=== PATIENT | male | born 1965 | race Caucasian/White ===

== ENCOUNTER 2017-08-26 08:15 | Day surgery (SDC) | payer OTHER ==
[2017-08-26] MEDS ORDERED: Ringers Lactate 1,000 ML IV ONE (09:03)
[2017-08-26] MEDS ORDERED: CLINDAMYCIN INJ 600 MG in NA CHLORIDE 0.9% 50 ML IV ONE (10:00)
[2017-08-26] MEDS ORDERED: PROPOFOL 200 MG/20 ML VIAL IV ONE (10:43)
[2017-08-26] MEDS ORDERED: FENTANYL CITR 100 MCG/2 ML ONE (10:43)
[2017-08-26] MEDS ORDERED: LIDOCAINE 2% MPF 5 ML VIAL ONE (10:44)
[2017-08-26] MEDS ORDERED: KETOROLAC 30 MG/ML INJ ONE (11:17)
[2017-08-26] MEDS ORDERED: ONDANSETRON 4 MG/2 ML VIAL ONE (11:18)
[2017-08-26] MEDS ORDERED: DEXAMETHASONE 10 MG/ML VIAL ONE (11:18)
[2017-08-26] MEDS ORDERED: CODEINE 30MG/APAP 300MG TAB ONE (11:52)
--- NOTE | 2017-08-26 21:55 | OP ---
Surgeon: John Stein MD Preoperative Diagnosis: Infection of the left index finger. Postoperative Diagnosis: Infection of the left index finger. Procedure Performed: Debridement of skin and subcutaneous tissue and abscess. Anesthesia: General. Procedure In Detail: After satisfactory induction of general anesthesia, the left hand was prepped w ith Betadine scrub, Betadine paint, dry sterile drapes applied in the usual manner. The arm was elev ated. Tourniquet was inflated to 250 mmHg. An elliptical incision was made over the proximal phalan x, dorsal surface, slightly radial. Yellow-green pus was encountered consistent with MRSA. Proximal distal extension remained in all infected tissue was excised. Wound was curetted and jet lavaged, i rrigated with 2 L of dilute Betadine solution. Tourniquet released. Electrocautery was used for hem ostasis. A quarter-inch Nu Gauze was applied, 2-inch Myrna and Kerlix. The patient tolerated the pr ocedure well and returned to recovery. ANTHONY/JAYE Voice ID: [id number] Report ID: [id number]
== END 2017-08-26 12:47 | disposition home or self-care (01) ==
LOC: OR 08:15
PROVIDERS: ATTEND Specialist
PROC: 0H9GXZZ Drainage of Left Hand Skin, External Approach (ICD-10-PCS; principal; 2017-08-26 10:15)
DX: L02.512 Cutaneous abscess of left hand (principal)
CPT/HCPCS: 87070; 87075; 87077; 87186; 87205; J1100; J2405; J3010

== ENCOUNTER 2017-08-31 08:01 | Day surgery (SDC) | payer OTHER ==
[2017-08-31] MEDS ORDERED: Ringers Lactate 1,000 ML IV ONE (08:04)
[2017-08-31] MEDS ORDERED: CEFAZOLIN/SWI 1gm 1 GM/10 ML SYR ONE (08:04)
[2017-08-31] MEDS ORDERED: MIDAZOLAM HCL 2 MG/2 ML INJ ONE (08:59)
[2017-08-31] MEDS ORDERED: LIDOCAINE 2% MPF 5 ML VIAL ONE (08:59)
[2017-08-31] MEDS ORDERED: FENTANYL CITR 100 MCG/2 ML ONE (08:59)
[2017-08-31] MEDS ORDERED: PROPOFOL 200 MG/20 ML VIAL IV ONE (08:59)
[2017-08-31] MEDS ORDERED: KETOROLAC 30 MG/ML INJ ONE (09:02)
[2017-08-31] MEDS: MORPHINE 4 MG/ML SYR ONE ×2 (10:12→10:17)
[2017-08-31] MEDS ORDERED: CODEINE 30MG/APAP 300MG TAB ONE (10:48)
--- NOTE | 2017-08-31 22:10 | OP ---
Surgeon: John Stein MD Ring Packer: Geovany. Preoperative Diagnosis: Open wound, left index finger. Postoperative Diagnosis: Open wound, left index finger. Procedure: Debridement of skin and subcutaneous tissue, flap closure. Anesthesia: General. Description Of Procedure: After satisfactory induction of general anesthesia, the left arm was prepp ed with Betadine scrub, Betadine paint, and dry sterile drapes were applied in the usual manner. The arm was elevated and exsanguinated with an Esmarch. Tourniquet was inflated to 250 mmHg. Hand was placed on a roll-out table. Scalpel was used to debride skin edges and then a curette was used. Wou nd was jet lavage and irrigated with 1 L of Betadine solution. Tourniquet was released. Electrocaut sirisha was used for hemostasis. Flap was advanced and closed with 4-0 Prolene with horizontal mattress and vertical mattress. Dressed with Xeroform and 2 inch Myrna. The patient tolerated the procedure well and returned to Recovery. ANTHONY/JAYE Voice ID: [id number] Report ID: [id number]
== END 2017-08-31 11:09 | disposition home or self-care (01) ==
LOC: OR 08:01
PROVIDERS: ATTEND Specialist
PROC: 0JQK0ZZ Repair Left Hand Subcutaneous Tissue and Fascia, Open Approach (ICD-10-PCS; principal; 2017-08-31 09:00)
DX: S71.002A Unspecified open wound, left hip, initial encounter (principal)
CPT/HCPCS: J0690; J2250; J3010